=== PATIENT | female | born 1945 | race Caucasian/White ===

== ENCOUNTER → 2017-04-16 06:45 | Outpatient (CLI) | payer MEDICARE, OTHER, SELFPAY ==
--- NOTE | 2017-04-16 09:44 | EKG12_ITS ---
Test Reason : PALPITATIONS Blood Pressure : / mmHG Vent. Rate : 068 BPM Atrial Rate : 068 BPM P-R Int : 126 ms QRS Dur : 084 ms QT Int : 426 ms P-R-T Axes : 031 036 052 degrees QTc Int : 452 ms Normal sinus rhythm Normal ECG Confirmed by MEG FLEMING ([id number]), editorial specialist WERNER THAO ([id number]) on 04/17/2017 11:39:01 AM Referred By: Rina Rodriguez Confirmed By:MEG FLEMING
--- NOTE | 2017-04-16 12:43 | STRESSREP ---
Stress Test Report Exercise myocardial perfusion stress test. 71-year-old lady with a history of chest pain. Stress protocol: Resting EKG demonstrates normal sinus rhythm with a rate of 68 bpm. Resting blood pressure is 152/88 mmHg. The patient exercised according to the regular Kenny protocol for total duration of 6 minutes completing stage II of the Kenny protocol. The maximum heart rate attained was 144 bpm which was 96% of the maximum predicted heart rate the maximum workload attained was 7 metabolic equivalents. The patient maintained sinus rhythm throughout the recording. At rest there were no ST or T-wave changes noted suggest ischemia at peak exercise upsloping ST changes only were noted with no meet the criteria for ischemia. Minimal chest discomfort was noted we did not appear to be angina. The resting blood pressure was 152/88 with a peak blood pressure of 164/76. Rate pressure product was 21,500. Myocardial perfusion protocol. 11.7 mCi of technetium 99m sestamibi was injected at rest. Patient exercised according to regular Kenny protocol total duration of 6 minutes attaining 7 metabolic equivalents. At peak exercise 33.6 mCi of technetium 99m sestamibi was injected. Stress images were obtained stress and rest images were reconstructed and compared in the short axis vertical long and horizontal long axis. Gated images were also obtained. Perfusion SPECT analysis. Review of the stress images demonstrate normal uptake of tracer noted in all areas of the myocardium. The resting images similarly demonstrate normal uptake of tracer noted in all areas of the myocardium. No areas of reversibility are noted suggest ischemia. No previous infarct is noted. Gated SPECT analysis: The gated ejection fraction is noted to be 87%. Conclusion: Normal exercise myocardial perfusion stress test at a moderate workload. Preserved ejection fraction.
== END ==
PROVIDERS: Family Provider Internal Medicine; PCP Internal Medicine; Visit Provider Clinical Nurse Specialist
DX: R07.89 Other chest pain (principal); R00.2 Palpitations
CPT/HCPCS: 78452; 93005; 93017; 93225; 93226; A9500; A4216

== ENCOUNTER 2017-05-23 07:33 | Emergency (ER) | payer MEDICARE, OTHER, SELFPAY ==
[2017-05-23 07:35] VITALS: BP 157/97; PULSE 87; RESP 16; TEMP 36.9; O2SAT 95; BMI 32.1
--- NOTE | 2017-05-23 07:51 | EKG12_ITS ---
Test Reason : SORE THROAT Blood Pressure : / mmHG Vent. Rate : 071 BPM Atrial Rate : 071 BPM P-R Int : 166 ms QRS Dur : 082 ms QT Int : 418 ms P-R-T Axes : 030 012 032 degrees QTc Int : 454 ms Normal sinus rhythm Normal ECG Confirmed by ALLEN DUFFY, SHEILA ([id number]), electronic news gathering editor WERNER THAO ([id number]) on 05/26/2017 2:47:01 PM Referred By: MARIBELL Confirmed By:SHEILA VILLA MD
--- NOTE | 2017-05-23 07:51 | RAD_ITS ---
STUDY: X-RAY CHEST REASON FOR EXAM: Female, 71 years old. Cough. TECHNIQUE: Single AP portable view of the chest. COMPARISON: None. FINDINGS: The lungs are clear and expanded. There is no demonstrated pleural abnormality. Normal size heart. Normal mediastinum and caty. Normal visualized pulmonary arteries. Normal visualized aortic arch and descending thoracic aorta. Normal visualized thoracic spine. Normal visualized ribs, clavicles, and shoulders. Large hiatal hernia. RAD/Chest 1 View (Portable) IMPRESSION: Large hiatal hernia. The lungs are clear. Electronically Signed: Daniel Smyth MD at 8:24 EST Tel [phone], Service support ,
--- NOTE | 2017-05-23 07:56 | ED.DCSUM_ITS ---
- ER Visit Summary Date of Service: 05/23/17 Chief Complaint: URI History of Present Illness: The patient is a 71 F presenting with URI. Patient states that she has not been feeling well for the past week. She has had runny nose, congestion, cough. She states yesterday she began having a sore throat and painful swallowing. Denies difficulty swallowing. She has mild right ear pain. She denies chest pain or shortness of breath. She has not had a fever. She complains of fatigue and myalgias. Her was recently sick with similar complaints. States she had dry heaves with no vomiting. She was able to tolerate orange juice this morning. Denies other complaints. Physical Examination: Vitals are stable. Patient is afebrile. Alert no acute distress. HEENT exam is unremarkable. Pharyngeal erythema with no exudate. TMs normal bilaterally Neck is supple. No meningismus Lungs are clear and equal bilaterally. Heart is regular rate and rhythm. Abdomen is soft nontender nondistended. Extremities are unremarkable. Skin is warm and dry. No focal neurologic deficit. Remainder of exam is unremarkable. Emergency Department Course and Treatment: Patient was given IV fluids, Zofran. CBC, chemistries unremarkable. Urinalysis normal. Troponin is negative. EKG is sinus rate 71 with no acute ischemic changes. Strep and influenza are both negative. Patient is feeling improved in the emergency department. She is advised to follow-up with her primary care physician. Advised return to the ED for any worsening complaints. Disposition: Discharge home Impression: Upper respiratory infection This note was generated with [employer] dictation software. It may contain incorrect words, spelling, and punctuation that were not noted in review of the chart prior to signing ED Disposition - Plan for ED Patient: Chief Complaint: Sore Throat Referrals: Cherelle Stephen MD [Primary Care Provider] -
[2017-05-23 07:58] LABS: Red Blood Cells-Urine 0 SEEN /hpf (0-5)
[2017-05-23 08:03] LABS: Color, Urine Yellow (Yellow); Glucose, Dipstick Normal (Normal); Ketone-Dipstick Negative (Negative); Leukocyte Esterase-Dipstick Negative /ul (Negative); Nitrite-Dipstick Negative (Negative); Occult Blood-Urine Negative /ul (Negative); Protein-Dipstick Negative (Negative); Urine Bilirubin Dipstick Negative (Negative); Urine Clarity Clear (Clear); Urine Urobilinogen Normal (Normal)
[2017-05-23] MEDS: Ondansetron 4 MG/2 ML Vial IV (08:07)
[2017-05-23 08:20] LABS: Bacteria RARE /hpf (None Seen); Mucous, Urine RARE /hpf (<or=2+); Squamous Epithelial Cells - UA 0-5 SEEN /hpf (5-10); White Blood Cells 0-5 SEEN /hpf (0-5)
[2017-05-23 08:23] LABS: Absolute Lymphocyte Count 0.55 X10^3/ul (0.83-4.51); Basophil# 0.01 X10^3/uL; Basophil% 0.1 % (0-1); Eosinophil# 0.01 X10^3/uL; Eosinophils% 0.1 % (0-5); Hematocrit 37.7 % (37-47); Hemoglobin 12.2 g/dl (12.0-15.0); Lymphocyte # 0.55 X10^3/ul (4.0); Lymphocyte % 6.8 % (19-41); Mean Corp Hgb Conc 32.4 g/gl (32-36); Mean Corpuscular Volume 83.4 fL (81-99); Mean Platelet Vol. 8.5 fl (6.2-12.0); Monocyte# 0.43 X10^3/uL; Monocyte% 5.3 % (0-10); Neutrophil # 7.04 X10^3/uL (2.7-7.7); Neutrophil % 87.7 % (47-70); Platelet Count 261 K/mm3 (150-450); RBC Distribution Width CV 15.6 % (11.6-14.6); Red Blood Count 4.52 M/mm3 (4.2-5.4)
[2017-05-23 08:30] LABS: Differential Indicated SCAN CRITERIA MET; POSITIVE COUNT NO; POSITIVE DIFFERENTIAL YES; POSITIVE MORPHOLOGY NO
[2017-05-23 08:34] LABS: Anion Gap 10 (5-15); BUN 8 mg/dL (7-18); BUN/Creat Ratio 11.9 RATIO (10-20); Calcium,Total 8.9 mg/dL (8.5-10.1); Chloride 102 mmol/L (98-107); Creatinine, Serum 0.67 mg/dL (0.55-1.02); EST Glomerular Filtration Rate 92 mL/min (>60); Est Glom Filt Rate - Afr Amer 112 mL/min (>60); Glucose 128 mg/dL (74-106); Sodium Level 138 mmol/L (136-145)
--- NOTE | 2017-05-23 08:53 | ED.DEP ---
ED Disposition - Plan for ED Patient: Chief Complaint: Sore Throat Instructions: ED Upper Resp Infec No Abx Tx Referrals: Cherelle Stephen MD [Primary Care Provider] -
[2017-05-23 09:21] VITALS: BP 125/85; PULSE 82; RESP 16; TEMP 36.6; O2SAT 100
== END 2017-05-23 09:22 | disposition home or self-care (01) ==
PROVIDERS: Emergency Provider Emergency Medicine; Family Provider Internal Medicine; PCP Internal Medicine
DX: J06.9 Acute upper respiratory infection, unspecified (principal)
CPT/HCPCS: 71045; 80048; 81001; 84484; 85025; 87804; 87880; 93005; 96374; 99282; J7030; J7040; J2405

== ENCOUNTER → 2018-05-15 12:39 | Outpatient (CLI) | payer MEDICARE, OTHER, SELFPAY ==
--- NOTE | 2018-05-15 12:48 | CT_ITS ---
STUDY: CT SOFT TISSUE NECK WITH CONTRAST REASON FOR EXAM: Female, 72 years old. Pain under right jawline RADIATION DOSAGE (If Supplied By Facility): CTDIvol = ( 21.98 ) mGy, DLP = ( 614.78 ) mGycm TECHNIQUE: The patient was scanned in a multi-detector CT scanner. High resolution transaxial imaging was performed following intravenous administration of Isovue 300 75CC IV. Sagittal and coronal images were reconstructed. Individualized dose optimization techniques were used for this CT. COMPARISON: May 23, 2017 chest x-ray FINDINGS: Normal bilateral parotid glands. Normal bilateral ground operations supervisor spaces. Normal bilateral parapharyngeal spaces. The right side carotid artery is very tortuous. The extends medially to sit posterior to the level of the epiglottis. On the left side there is tortuosity as well. Normal bilateral sublingual and submandibular glands and spaces. Normal visualized nasopharynx. Normal retropharyngeal space. Normal perivertebral space. Normal visualized bilateral faucial tonsils. The visualized tongue, tongue base and oropharynx are normal. There is a nonspecific lymph node with a fatty center measuring 8.9 x 7.6 mm just under the right mandible. Symmetric lymph node is seen on the left side measuring 9 x 7 mm. Also with a fatty center. There is a right maxillary canine with a periodontal abscess. There is no demonstrated solid or cystic mass lesion. There is no abnormal contrast enhancement. Normal epiglottis, bilateral vallecula and hypopharynx. The pre-epiglottic and paraglottic adipose spaces are normal. Normal visualized bilateral piriform sinuses, aryepiglottic folds, vocal cords, and arytenoid-cricoid articulations. Normal subglottic trachea. Normal bilateral lobes of the thyroid gland. There is groundglass opacity seen in the pulmonary apices. There is a large hiatal hernia which is demonstrated at the level of the cristal as seen on the prior chest x-ray that measures 7.8 x 5.1 cm. Normal visualized paranasal sinuses. Normal visualized cervical spine. CT/Soft Tissue Neck WITH Contrast IMPRESSION: No visualized suspicious mass underlying the right jawline. There are nonspecific benign-appearing lymph nodes demonstrated. Right mandibular tooth with a root canal type post with underlying lucency suspicious for periodontal abscess. Recommend periodontal consult. Torturous right greater than left carotid arteries. Large hiatal hernia measuring 7.8 x 5.1 cm at the level the cristal. Partially visualized on this study. Electronically Signed: Luli Montgomery MD at 17:48 EST Tel , Service support ,
[2018-05-15 13:06] LABS: CREATININE FINGERSTICK 0.8 mg/dL (0.55-1.02); EGFR FINGERSTICK > 60.0000 mL/min (>60)
== END ==
PROVIDERS: Family Provider Internal Medicine; PCP Internal Medicine; Referring Provider Otolaryngology; Visit Provider Otolaryngology
DX: R22.1 Localized swelling, mass and lump, neck (principal); M54.2 Cervicalgia
CPT/HCPCS: 70491; Q9967

== ENCOUNTER 2021-05-04 15:11 | Outpatient (CLI) | payer MEDICARE, OTHER, SELFPAY | END 2021-05-04 23:59 | disposition home or self-care (01) | LOC: LABSPEC 15:13 | PROVIDERS: PCP Internal Medicine; Visit Provider Otolaryngology | DX: B37.0 Candidal stomatitis (principal) | CPT/HCPCS: 87070 ==

== ENCOUNTER → 2022-05-18 | Outpatient (CLI) | payer MEDICARE, OTHER, SELFPAY ==
--- NOTE | 2022-05-18 09:15 | MRI_ITS ---
PROCEDURE: LUMBAR SPINE MRI WITHOUT CONTRAST COMPARISONS: None CLINICAL INDICATION: RADICULOPATHY, right hip and back pain TECHNIQUE: Noncontrast lumbosacral spine MRI study was performed multiple sequences in sagittal and axial planes. FINDINGS: S-shaped scoliosis, dextroconvex at L1, and levoconvex at L4. No anterolisthesis or retrolisthesis. Multilevel vertebral body hemangiomas. Normal partially visualized sacroiliac joints. The conus medullaris terminates at L1. No abnormal signal within the visualized cord. L1-L2: Disc desiccation. Normal spinal canal and neuroforamina. L2-L3: Disc bulge crowds the traversing L3 nerve roots in both lateral recesses. Mild bilateral facet arthrosis. Mild left neural foraminal stenosis. L3-L4: Chronic endplate change. Disc bulge crowds the traversing L3 nerve roots in both lateral recesses. Mild bilateral facet arthrosis. Mild right neural foraminal stenosis. L4-L5: Chronic endplate change. Posterior fissure without posterior bulge. Right facet arthrosis. Mild right neural foraminal stenosis. L5-S1: Chronic endplate change. Posterior annular fissure without posterior bulge. No spinal canal or neural foraminal stenosis. Paraspinous muscle fatty infiltration. MRI/Spine Lumbar (Routine) IMPRESSION: 1. Mild neural foraminal stenosis on the left at L2-3, bilaterally at L3-4, and on the right at L4-5. 2. Crowded traversing nerve roots in the lateral recesses at L2-3 and L3-4. 3. S-shaped scoliosis. 4. Other degenerative change detailed above. Electronically Signed: Chencho Robert MD at 21:34 EST ,
== END | disposition home or self-care (01) ==
LOC: MRI 08:37
PROVIDERS: PCP Internal Medicine; Visit Provider Anesthesiology Pain Medicine
DX: M54.16 Radiculopathy, lumbar region (principal)
CPT/HCPCS: 72148

== ENCOUNTER 2023-08-15 13:04 | Emergency (ER) | payer MEDICARE, OTHER, SELFPAY ==
[2023-08-15 13:05] VITALS: BP 173/92; PULSE 77; RESP 16; TEMP 36.4; O2SAT 100; BMI 24.7
[2023-08-15 14:04] VITALS: BP 137/59; PULSE 68; RESP 16; O2SAT 98
--- NOTE | 2023-08-15 14:18 | EKG12_ITS ---
Test Reason : CP Blood Pressure : / mmHG Vent. Rate : 070 BPM Atrial Rate : 070 BPM P-R Int : 174 ms QRS Dur : 084 ms QT Int : 396 ms P-R-T Axes : 054 030 031 degrees QTc Int : 427 ms Normal sinus rhythm Normal ECG Confirmed by SHEILA VILLA MD ([id number]), avid editor JENNIFER JEFFERY ([id number]) on 08/18/2023 6:49:01 AM Referred By: DOROTHY/SINDY Confirmed By:SHEILA VILLA MD
[2023-08-15] MEDS: Aspirin 81 MG TAB.CHEW 324 MG PO (14:28)
--- NOTE | 2023-08-15 14:30 | RAD_ITS ---
STUDY: X-RAY CHEST REASON FOR EXAM: Female, 77 years old. Chest pain TECHNIQUE: PA and lateral views of the chest. COMPARISON: Comparison is made with prior study dated May 23, 2017. FINDINGS: EKG electrodes are seen. The lungs are clear and expanded. There is no demonstrated pleural abnormality. Normal size heart. Normal mediastinum and caty. Normal visualized pulmonary arteries. Normal visualized aortic arch and descending thoracic aorta. There are diffuse degenerative changes of the visualized thoracic spine. Mild dextroscoliosis at the thoracal lumbar junction. Normal visualized ribs, clavicles, and shoulders. Large hiatal hernia. RAD/Chest PA and Lateral IMPRESSION: Large hiatal hernia. Electronically Signed: Daniel Smyth MD at 15:11 EDT ,
[2023-08-15 14:34] LABS: Absolute Lymphocyte Count 0.93 X10^3/uL (0.83-4.51); Absolute Neutrophil Count 4.3 X10^3/uL (2.0-7.7); Basophil# 0.02 X10^3/uL; Basophil% 0.4 % (0-1); Eosinophil# 0.05 X10^3/uL; Eosinophils% 0.9 % (0-5); Hematocrit 44.6 % (37-47); Hemoglobin 14.8 g/dL (12.0-15.0); Lymphocyte # 0.93 X10^3/ul (0.83-4.51); Lymphocyte % 16.4 % (19-41); Mean Corp Hgb Conc 33.2 g/dL (32-36); Mean Corpuscular Hgb 30.8 pg (27.0-32.0); Mean Corpuscular Volume 92.9 fL (81-99); Mean Platelet Vol. 8.7 fl (6.2-12.0); Monocyte# 0.39 X10^3/uL; Monocyte% 6.9 % (0-10); NRBC Flagged by Analyzer 0 % (0-5); Neutrophil # 4.27 X10^3/uL (2.7-7.7); Platelet Count 280 K/mm3 (150-450); RBC Distribution Width CV 12.5 % (11.6-14.6); White Blood Count 5.7 K/mm3 (4.4-11.0)
[2023-08-15 15:00] VITALS: BP 142/72; PULSE 70; RESP 16; O2SAT 98
[2023-08-15 15:00] LABS: Anion Gap 2 (5-15); BUN 9 mg/dL (7-18); BUN/Creat Ratio 13.1 RATIO (10-20); Calcium,Total 9.8 mg/dL (8.5-10.1); Chloride 100 mmol/L (98-107); Creatinine, Serum 0.68 mg/dL (0.55-1.02); EST Glomerular Filtration Rate 89 mL/min (>60); Est Glom Filt Rate - Afr Amer 107 mL/min (>60); Estimated Creatinine Clearance 49.53 ml/min; Glucose 110 mg/dL (74-106); Potassium 4.7 mmol/L (3.5-5.1); Sodium Level 133 mmol/L (136-145); Thyroid Stim Hormone (TSH) 1.45 uIU/mL (0.358-3.74); Troponin-I HS (w/2H Reflex) 5 pg/mL (3.0-54.0)
[2023-08-15 16:00] VITALS: BP 147/69; PULSE 77; RESP 16; O2SAT 98
[2023-08-15 16:28] LABS: Reflex Troponin-HS? (from REC) Y
--- NOTE | 2023-08-15 16:49 | ED.VIS.CHEST ---
HPI History of Present Illness Chief Complaint: Chest Pain Informant: patient Narrative Narrative: Patient is a 77-year-old female with history of hypertension as well as hiatal hernia presenting for chest pain. Patient states she has had intermittent tightness in the center of her chest for the past 4 days and sometimes will radiate to her left shoulder. She notes with past 4 hours it has been there. Seems to be better when she lays on her right side. Denies any other aggravating or alleviating factors. Eyes had some mild dizziness associated with this. Denies any respiratory symptoms including shortness of breath, cough or dyspnea on exertion. Patient also admits that she has been having intermittent hives for the past week. Because of this she stopped eating strawberries but also stopped her medications including Norvasc 2.5 mg as well as estradiol vaginal cream. She states that her hives have been improving since then. She does take [id number] Aspen as well as Pepcid normally. Denies any other new exposures. Denies any swelling of her legs. No other complaints or concerns reported at this time. [facility] Home Medications ?Medication ?Instructions ?Recorded ?Last Taken ?Type amlodipine 2.5 mg tablet 2.5 mg PO DAILY blood pressure 08/15/23 Unknown History Allergy/AdvReac Type Severity Reaction Status Date / Time adhesive tape Allergy Rash Verified 08/15/23 13:07 poliomyelitis vaccine,killed Allergy Hives Verified 08/15/23 13:07 propoxyphene (From Darvon) Allergy Other Verified 08/15/23 13:07 Social History Smoking Status: Former smoker ROS ROS ED Constitutional Constitutional ED: Denies chills or fever(s) Cardiovascular Cardiovascular: Reports as per HPI and chest pain; Denies palpitations Respiratory/Chest Respiratory/Chest: Denies cough, dyspnea or dyspnea on exertion Gastrointestinal Gastrointestinal: Denies abdominal pain, nausea or vomiting Musculoskeletal Musculoskeletal: Denies arthralgias or myalgias Integumentary Reports rash Neurologic Neurologic: Denies headache(s) Psychiatric Psychiatric: Reports anxiety Hematologic/Lymphatic Hematologic/Lymphatic: Denies easy bleeding or easy bruising EXAM Physical Exam Const Vital Signs: 08/15/23 13:05 08/15/23 14:04 08/15/23 14:18 Temperature 97.5 F L Temperature Source Temporal Pulse Rate 77 68 Respiratory Rate 16 16 Blood Pressure 173/92 H 137/59 H Blood Pressure Mean 119 85 Pulse Ox 100 98 Oxygen Delivery Method Room Air Room Air 08/15/23 15:00 08/15/23 16:00 08/15/23 17:00 Temperature Temperature Source Pulse Rate 70 77 66 Respiratory Rate 16 16 17 Blood Pressure 142/72 H 147/69 H 154/69 H Blood Pressure Mean 95 95 97 Pulse Ox 98 98 99 Oxygen Delivery Method Room Air Room Air Positive well nourished and well developed General Appearance ED: well developed and NAD HEENT Reports moist mucous membranes normocephalic and atraumatic Eyes PERRL and EOMs intact bilaterally Neck supple Chest Wall inspection of chest normal and palpation of chest normal Resp normal respiratory effort and clear to auscultation bilaterally Cardio regular rate, regular rhythm and no murmurs GI normal to inspection, nondistended, normoactive bowel sounds and soft to palpation Extremity normal to inspection Neuro oriented x3 Sensorium / Orientation: awake Motor Exam: Negative for general weakness Psych mental status grossly normal Skin no wounds Skin Narrative: Sporadic, flat erythematous macules on the abdomen, no associated tenderness. No vesicles appreciated. Negative Nikolsky sign. Heart Score History: Slightly/Non-Suspicious ECG: Normal Age: >/= 65 years Risk Factors: 1 or 2 Risk Factors Troponin: </= Normal Limit Score: 3 MDM MDM MDM Narrative Medical decision making narrative: Patient is evaluated for chest pain. While she has a history of hiatal hernia she wanted to make sure this is not cardiac in nature. In addition patient mentions that she has been having hives intermittently for the past week however they are improving. She does not have any findings concerning for anaphylaxis at this time. Blood pressures initially elevated upon arrival at 173/92 but she stopped taking her Norvasc this week. Blood pressure does improve without any further intervention in the emergency room. Patient is given aspirin for her chest pain. EKG does not show any acute ischemia and it shows normal sinus rhythm. Cardiac workup including delta high-sensitivity troponin and chest x-rays obtained. This is largely negative. CBC and BMP are normal. TSH is normal. Anticipate that if delta high-sensitivity troponin is normal patient will be discharged home with outpatient follow-up. Patient is agreeable this plan of care. Discussed that hiatal hernia could be causing her symptoms and recommended following up with her primary care doctor as well as increasing her Pepcid to twice a day for the next week. She is agreeable this plan of care. Discussed at length with patient and her son about her hives and that I cannot definitively tell what is causing him but they are many causes that are not necessarily medication related. While she had stopped her medications she had been on them for months and I told her I doubt that they are causing her symptoms and she should be able to restart her medications. Also recommended seeing an pill maker. Patient will discuss this with her PCP. Lab Data Attestation: I reviewed the patient's lab results. Labs: Laboratory Results - last 24 hr 08/15/23 08/15/23 13:20 16:32 WBC 5.7 RBC 4.80 Hgb 14.8 Hct 44.6 MCV 92.9 MCH 30.8 MCHC 33.2 RDW Std Deviation 43.0 RDW Coeff of Kamari 12.5 Plt Count 280 MPV 8.7 Immature Gran % (Auto) 0.400 Neut % (Auto) 75.0 H Lymph % (Auto) 16.4 L [place] % (Auto) 6.9 Eos % (Auto) 0.9 Baso % (Auto) 0.4 Absolute Neuts (auto) 4.3 Absolute Lymphs (auto) 0.93 Nucleated RBC % 0 Sodium 133 L Potassium 4.7 Chloride 100 Carbon Dioxide 31.0 Anion Gap 2 L BUN 9 Creatinine 0.68 Estim Creat Clear Calc 49.53 Est GFR (MDRD) Af Amer 107 Est GFR (MDRD) Non-Af 89 BUN/Creatinine Ratio 13.1 Glucose 110 H Calcium 9.8 Troponin I High Sens 5 6 TSH 1.45 Radiography Chest X-Ray - ED: 2 View, Read by ED Physician, Read by Radiologist, No Acute Disease and - (Large hiatal hernia present) Diagnostic Testing: Clinical Impression(s) from Imaging Studies Chest X-Ray 08/15/23 14:30 IMPRESSION: Large hiatal hernia. Electronically Signed: Daniel Smyth MD at 15:11 EDT , Rhythm Strip Rhythm Strip: Sinus Rhythm Rate: 70 Ectopy: None EKG Initial EKG: Attestation: I personally reviewed and interpreted this EKG as follows: Interpretation: Sinus Rhythm Comments: Normal sinus rhythm at a rate of 70 bpm Normal axis Normal intervals Normal ST segments Discharge Plan Triage Chief Complaint: Chest Pain ED Provider: Arcelia Lowry Dx/Rx/DC Orders Clinical Impression: Chest pain in adult, Hypertension, Hernia, hiatal, Hives of unknown origin Instructions: ED Chest Pain, Uncertain Cause, ED Hives (Adult) Prescriptions: No Action amlodipine 2.5 mg tablet 2.5 mg PO DAILY Primary Care Provider: Cherelle Stephen Referrals: Cherelle Stephen MD [Primary Care Provider] - Activity Restrictions/Additional Instructions: Please follow-up with your primary care doctor. Please discuss referral for pill maker for evaluation of these hives as we discussed. I do recommend resuming your Norvasc (amlodipine). I do not think this is contributing to your symptoms. In addition as we discussed please increase your Pepcid to twice a day for the next week to see if this helps further with your symptoms. Print Language: Yemeni Disposition Disposition: Home, Self Care
[2023-08-15 17:00] VITALS: BP 154/69; PULSE 66; RESP 17; O2SAT 99
[2023-08-15 17:02] LABS: Troponin-I HS 6 pg/mL (3.0-54.0)
[2023-08-15 17:20] VITALS: BP 149/68; PULSE 66; RESP 16; TEMP 36.3; O2SAT 99
== END 2023-08-15 17:25 | disposition home or self-care (01) ==
PROVIDERS: Emergency Provider Emergency Medicine; PCP Internal Medicine; Visit Provider Emergency Medicine
DX: R07.9 Chest pain, unspecified (principal); Z87.891 Personal history of nicotine dependence; K44.9 Diaphragmatic hernia without obstruction or gangrene; I10 Essential (primary) hypertension; L50.9 Urticaria, unspecified
CPT/HCPCS: 71046; 80048; 84443; 84484; 85025; 93005; 99284; A4216